=== PATIENT | female | born 1980 | race African-American/Black ===

== ENCOUNTER 2018-11-18 15:37 | Emergency (ER) | payer OTHER ==
[2018-11-18 15:45] VITALS: BP 144/73; PULSE 87; TEMP 98; BMI 31.7
[2018-11-18] MEDS ORDERED: CYCLOBENZAPRINE HCL 10 MG TABLET (FP) PO ONE (15:49)
[2018-11-18] MEDS ORDERED: KETOROLAC TROMETHAMINE 60 MG/2 ML VIAL IM ONE (15:49)
--- NOTE | 2018-11-18 15:49 | PDOC ---
Rapid Medical Evaluation Time Seen by Provider: 11/18/18 15:43 Medical Evaluation: Allergies Allergy/AdvReac Type Severity Reaction Status Date / Time No Known Allergies Allergy Verified 03/12/15 14:50 11/18/18 15:44 I have performed a brief in-person evaluation of this patient. The patient presents with a chief complaint of: back and neck pain after tripping and falling down 2 days ago down carpeted stairs Pertinent physical exam findings: no cervical tenderness, + trap tenderness bilaterally , Lrom with rotation I have ordered the following: toradol and flexeril The patient will proceed to the ED for further evaluation. Discharge Disposition - Diagnosis Fall - Referrals - Patient Instructions - Post Discharge Activity
--- NOTE | 2018-11-18 16:23 | PDOC ---
History of Present Illness - General Chief Complaint: Injury Stated Complaint: FALL/ NECK PAIN Time Seen by Provider: 11/18/18 15:43 History Source: Patient Exam Limitations: No Limitations Past History - Travel Traveled outside of the country in the last 30 days: No Close contact w/someone who was outside of country & ill: No - Past Medical History Allergies/Adverse Reactions: Allergies Allergy/AdvReac Type Severity Reaction Status Date / Time No Known Allergies Allergy Verified 11/18/18 15:45 Home Medications: Ambulatory Orders Vit/Iron Fum/Folic AC [ Tablet] 1 each PO DAILY 10/17/14 Ibuprofen [Motrin -] 600 mg PO QID #28 tablet 05/28/15 Ibuprofen 600 mg PO Q6H #30 tablet 11/18/18 Methocarbamol [Robaxin -] 500 mg PO BID #14 tablet 11/18/18 Asthma: No Cancer: No Cardiac Disorders: No COPD: No Diabetes: No HTN: No Seizures: No Thyroid Disease: No - Reproductive History (#): 1 Para: 0 Spontaneous : 0 - Suicide/Smoking/Psychosocial Hx Smoking History: Never smoked Have you smoked in the past 12 months: No Hx Alcohol Use: No Drug/Substance Use Hx: No Substance Use Type: None Hx Substance Use Treatment: No *Physical Exam - Vital Signs Last Vital Signs Temp Pulse Resp BP Pulse Ox 98.0 F 87 16 144/73 100 11/18/18 15:40 11/18/18 15:40 11/18/18 15:40 11/18/18 15:40 11/18/18 15:40 *DC/Admit/Observation/Transfer Diagnosis at time of Disposition: Neck pain Fall Qualifiers: Encounter type: initial encounter Qualified Code(s): W19.XXXA - Unspecified fall, initial encounter - Discharge Dispostion Disposition: HOME Condition at time of disposition: Stable Decision to Admit order: No - Referrals Referrals: Serg Orlando MD [Primary Care Provider] - Torey Santiago MD, FA[facility] [Staff Physician] - - Patient Instructions Printed Discharge Instructions: DI for Whiplash Additional Instructions: You were evaluated for your neck pain after your fall Your x-rays show muscle spasm of the neck Your x-ray of your elbow was negative for broken bones Please take Motrin 600mg every 6 hours for pain Take Robaxin twice a day to help with the spasm. Do not drink or drive after taking this medication as it may make you drowsy Follow up with orthopedic/spine surgery should your symptoms persist longer than one week Return to the ER for any new or worsening symptoms - Post Discharge Activity Forms/Work/School Notes: Back to Work
[2018-11-18] MEDS ORDERED: LIDOCAINE 5% TOPICAL PATCH TP ONE (16:29)
[2018-11-18] MEDS ORDERED: LIDOCAINE 5% TOPICAL PATCH ONE (16:34)
[2018-11-18] MEDS ORDERED: KETOROLAC TROMETHAMINE 60 MG/2 ML VIAL ONE (16:34)
[2018-11-18] MEDS ORDERED: CYCLOBENZAPRINE HCL 10 MG TABLET (FP) ONE (16:35)
== END 2018-11-18 18:25 | disposition home or self-care (01) ==
LOC: JERFT 15:37
PROC: 3E0233Z Introduction of Anti-inflammatory into Muscle, Percutaneous Approach (ICD-10-PCS; principal; 2018-11-18)
DX: M62.838 Other muscle spasm (principal); M54.2 Cervicalgia; W10.8XXA Fall (on) (from) other stairs and steps, initial encounter; Y93.89 Activity, other specified; Y92.89 Other specified places as the place of occurrence of the external cause; Y99.8 Other external cause status
CPT/HCPCS: 72050-TC-FY; 73070-TC-LT-FY; 96372; 99281-25

== ENCOUNTER 2021-07-28 10:31 | Emergency (ER) | payer OTHER ==
[2021-07-28 10:58] VITALS: BP 129/79; PULSE 68; TEMP 98.6; BMI 38.2
== END 2021-07-28 12:46 | disposition home or self-care (01) ==
LOC: JERFT 10:31
DX: S80.12XA Contusion of left lower leg, initial encounter (principal); M79.605 Pain in left leg; W20.8XXA Other cause of strike by thrown, projected or falling object, initial encounter
CPT/HCPCS: 99281-25

== ENCOUNTER 2021-12-14 21:11 | Emergency (ER) | payer OTHER ==
[2021-12-14 21:57] VITALS: BP 117/76; PULSE 72; RESP 20; TEMP 97.9; BMI 36.0
[2021-12-14] MEDS ORDERED: LIDOCAINE PATCH REMOVAL MC SCH (22:00)
[2021-12-14] MEDS ORDERED: LIDOCAINE 5% TOPICAL PATCH TP ONE (22:31)
[2021-12-14] MEDS ORDERED: LIDOCAINE 5% TOPICAL PATCH ONE (22:34)
[2021-12-14] MEDS ORDERED: KETOROLAC TROMETHAMINE 30 MG/1 ML VIAL IM ONE (23:08)
[2021-12-14] MEDS ORDERED: KETOROLAC TROMETHAMINE 15 MG/ML VIAL ONE (23:41)
[2021-12-14] MEDS ORDERED: METHOCARBAMOL 750 MG TAB PO ONE (23:45)
[2021-12-14] MEDS ORDERED: METHOCARBAMOL 500 MG TABLET ONE (23:46)
== END 2021-12-15 00:03 | disposition home or self-care (01) ==
LOC: JER 21:11
PROC: 3E0233Z Introduction of Anti-inflammatory into Muscle, Percutaneous Approach (ICD-10-PCS; principal; 2021-12-14)
DX: M54.50 Low back pain, unspecified (principal)
CPT/HCPCS: 84703; 99283-25

== ENCOUNTER 2023-08-16 09:06 | Emergency (ER) | payer OTHER ==
[2023-08-16 09:16] VITALS: BP 123/65; PULSE 73; RESP 20; TEMP 97.8; BMI 33.5
[2023-08-16] MEDS ORDERED: NAPROXEN 500 MG TABLET ONE (10:33)
[2023-08-16] MEDS: NAPROXEN 500 MG TABLET PO ONE (10:35)
== END 2023-08-16 10:36 | disposition home or self-care (01) ==
LOC: JERFT 09:06
DX: S96.912A Strain of unspecified muscle and tendon at ankle and foot level, left foot, initial encounter (principal); X58.XXXA Exposure to other specified factors, initial encounter
CPT/HCPCS: 73610-TC-LT-FY; 99283-25

== ENCOUNTER 2023-11-01 11:08 | Emergency (ER) | payer OTHER ==
[2023-11-01 11:36] VITALS: BP 126/78; PULSE 70; RESP 18; TEMP 98.4; BMI 41.1
[2023-11-01] MEDS ORDERED: KETOROLAC TROMETHAMINE 30 MG/1 ML VIAL ONE (12:49)
[2023-11-01] MEDS: KETOROLAC TROMETHAMINE 30 MG/1 ML VIAL IM ONE (12:53)
== END 2023-11-01 14:29 | disposition home or self-care (01) ==
LOC: JERFT 11:08
PROC: 3E0233Z Introduction of Anti-inflammatory into Muscle, Percutaneous Approach (ICD-10-PCS; principal; 2023-11-01)
DX: M54.50 Low back pain, unspecified (principal)
CPT/HCPCS: 99284-25